=== PATIENT | male | born 1965 | race Caucasian/White ===

== ENCOUNTER 2016-10-17 12:05 | Emergency (ER) | payer OTHER ==
[2016-10-17 12:21] VITALS: BMI 32.3
--- NOTE | 2016-10-17 12:36 | PDOC ---
History of Present Illness - General History Source: Patient Exam Limitations: No Limitations - History of Present Illness Initial Comments: 10/17/16 13:05 The patient is a 50 year old male with a PMHx of hypercholesterolemia who presents to the ED with lightheadedness and heart palpitations since last night. He states that the episodes last a few seconds. He describes the lightheadedness feels like he is spinning and the room is spinning. He states that he feels like he is going to pass out when the episodes occur. He reports associated cold sweats. He reports the dizziness is worse when he moves his head quickly and when he lays down. He reports the dizziness has occurred before , but denies palpitations before. He denies any chest pain, SOB. He denies urinary problems, abdominal pain. <Annamaria Esquivel - Last Filed: 10/17/16 13:56> <Adin Degroot - Last Filed: 10/17/16 15:15> - General Chief Complaint: Lightheaded Stated Complaint: PALPITATIONS Time Seen by Provider: 10/17/16 12:35 Past History <Annamaria Esquivel - Last Filed: 10/17/16 13:56> - Past Medical History Other medical history: DENIES. - Psycho/Social/Smoking Cessation Hx Suicidal Ideation: No Smoking History: Former smoker Have you smoked in the past 12 months: No Information on smoking cessation initiated: No <Adin Degroot - Last Filed: 10/17/16 15:15> - Past Medical History Allergies/Adverse Reactions: Allergies Allergy/AdvReac Type Severity Reaction Status Date / Time Penicillins Allergy Verified 10/17/16 12:16 Home Medications: Ambulatory Orders Meclizine HCl [Antivert -] 25 mg PO TID #60 tablet 10/17/16 Review of Systems - Review of Systems Able to Perform ROS?: Yes Comments:: 10/17/16 13:05 GENERAL/CONSTITUTIONAL: (+) diaphoresis. No fever or chills. No weakness. HEAD, EYES, EARS, NOSE AND THROAT: No change in vision. No ear pain or discharge. No sore throat. CARDIOVASCULAR: (+) heart palpitations. No chest pain or shortness of breath. RESPIRATORY: No cough, wheezing, or hemoptysis. GASTROINTESTINAL: No nausea, vomiting, diarrhea or constipation. GENITOURINARY: No dysuria, frequency, or change in urination. MUSCULOSKELETAL: No joint or muscle swelling or pain. No neck or back pain. SKIN: No rash NEUROLOGIC: (+) vertigo, headaches. No loss of consciousness, or change in strength/sensation. ENDOCRINE: No increased thirst. No abnormal weight change. HEMATOLOGIC/LYMPHATIC: No anemia, easy bleeding, or history of blood clots. ALLERGIC/IMMUNOLOGIC: No hives or skin allergy. 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 hearing grossly normal, nares patent, oropharynx clear without exudates. Moist mucosa NECK: Normal ROM, supple, no lymphadenopathy, JVD, or masses LUNGS: Breath sounds equal, clear to auscultation bilaterally. No wheezes, and no crackles HEART: Regular rate and rhythm, normal S1 and S2, no murmurs, rubs or gallops ABDOMEN: Soft, nontender, normoactive bowel sounds. No guarding, no rebound. No masses EXTREMITIES: Normal range of motion, no edema. No clubbing or cyanosis. No cords, erythema, or tenderness NEUROLOGICAL: Horizontal nystagmus. Cranial nerves II through XII grossly intact. Normal speech, normal gait SKIN: Warm, Dry, normal turgor, no rashes or lesions noted. <EsquivelAnnamaria A - Last Filed: 10/17/16 13:56> - Vital Signs Last Vital Signs Temp Pulse Resp BP Pulse Ox 98 F 72 19 127/70 99 10/17/16 12:16 10/17/16 12:16 10/17/16 12:16 10/17/16 12:16 10/17/16 12:16 <Adin Degroot - Last Filed: 10/17/16 15:15> Heart Score/ECG Review #1 10/17/16 13:57 Sinus bradycardia at 57 bpm. <Melida Esquivelobharlan Plaza - Last Filed: 10/17/16 13:56> ED Treatment Course - LABORATORY CBC & Chemistry Diagram: 10/17/16 13:04 10/17/16 13:04 - RADIOLOGY Radiograph Interpretation: 10/17/16 13:[address] Reported by: Dr. Elvis Tran Impression: No evidence of acute intracranial hemorrhage, edema, midline shift, mass effect, or skull fracture. NO CT evidence of acute territorial ischemic changes. <Melida Esquivelobhan Bola - Last Filed: 10/17/16 13:56> - LABORATORY CBC & Chemistry Diagram: 10/17/16 13:04 10/17/16 13:04 <Adin Degroot - Last Filed: 10/17/16 15:15> *DC/Admit/Observation/Transfer - Attestations Scribe Attestion: 10/17/16 13:05 Documentation prepared by Annamaria Esquivel, acting as medical illustrator for Adin Degroot DO. <Melida Esquivelobhan Bola - Last Filed: 10/17/16 13:56> - Discharge Dispostion Admit: No - Attestations Physician Attestion: 10/17/16 12:35 I, Dr. Adin Degroot, attest that this document has been prepared under my direction and personally reviewed by me in its entirety. I further attest, that it accurately reflects all work, treatment, procedures and medical decision -making performed by me. <Adin Degroot - Last Filed: 10/17/16 15:15> Diagnosis at time of Disposition: Vertigo, Palpitations - Discharge Dispostion Disposition: HOME Condition at time of disposition: Improved - Prescriptions Prescriptions: Meclizine HCl [Antivert -] 25 mg PO TID #60 tablet - Referrals Referrals: STAFF,NOT ON [Primary Care Provider] - Franklin Nation MD [Staff Physician] - Luis Nichols MD [Staff Physician] - - Patient Instructions Printed Discharge Instructions: DI for Benign Paroxysmal Positional Vertigo, DI for Palpitations Additional Instructions: Mr Vasquez- All of your tests were normal. I want you to follow up with Dr. Nation, ENT and Dr. Nichols, Cardiology. Use the antivert for dizziness. Return to us if worse or any new symptoms occur. Leroy- Dr. Adin Degroot
[2016-10-17 13:22] LABS: BASOPHIL 0.4 % (0-2.0); EOSINOPHIL 1.1 % (0-4.5); MCH 27.9 pg (25.7-33.7); MCHC 33.6 g/dl (32.0-35.9); MEAN CELL VOLUME 82.8 fl (80-96); MEAN PLT VOLUME 8.9 fl (7.5-11.1); NEUTROPHILS 51.3 % (42.8-82.8); PLATELET COUNT 198 K/MM3 (134-434); RDW 13.3 % (11.9-15.9); WHITE BLOOD COUNT 8.5 K/mm3 (4.0-10.0)
[2016-10-17 13:44] LABS: INR 1.08 (0.82-1.09); PROTHROMBIN TIME (PATIENT) 11.9 SEC (9.98-11.88)
[2016-10-17 13:48] LABS: ALBUMIN 4.3 g/dl (3.4-5.0); ANION GAP 9 (8-16); BILIRUBIN,TOTAL 0.7 mg/dL (0.2-1.0); CALCIUM 9.1 mg/dL (8.5-10.1); CO2 27 mmol/L (21-32); CREATININE 0.9 mg/dL (0.7-1.3); GLUCOSE,RANDOM 93 mg/dL (74-106); SGOT/AST 18 U/L (15-37); SGPT/ALT 29 U/L (12-78); TOT PROT 7.6 g/dl (6.4-8.2)
[2016-10-17 13:51] LABS: ALK PHOS 45 U/L (45-117); TROPONIN I < 0.02 ng/ml (0.00-0.05)
[2016-10-17 15:38] VITALS: BP 130/75; PULSE 77; TEMP 98.1
[2016-10-17 16:57] LABS: CK INDEX FOR DOBBS 0.8 % (0.0-5.0)
--- NOTE | 2016-10-18 20:54 | EKG ---
Test Reason : Blood Pressure : / mmHG Vent. Rate : 057 BPM Atrial Rate : 057 BPM P-R Int : 180 ms QRS Dur : 100 ms QT Int : 412 ms P-R-T Axes : 031 036 021 degrees QTc Int : 401 ms BASELINE ARTIFACTS SINUS BRADYCARDIA NO PREVIOUS ECGS AVAILABLE REPEAT EKG IF CLINICALLY INDICATED Confirmed by TIAN GILLESPIE MD ([id number]) on 10/18/2016 8:54:12 PM Referred By: Confirmed By:TIAN GILLESPIE MD
== END 2016-10-17 15:38 | disposition home or self-care (01) ==
LOC: JER 12:05
DX: H81.10 Benign paroxysmal vertigo, unspecified ear (principal); R00.2 Palpitations
CPT/HCPCS: 36415; 70450-TC; 71010-TC; 80053; 82550; 82553; 84484; 85025; 85610; 93005; 93010; 99284-25